=== PATIENT | female | born 2000 | race Caucasian/White ===

== ENCOUNTER 2024-01-10 19:20 | Inpatient (IN) | payer OTHER ==
[~2024-01-10] VITALS: Ht 162.6 cm; Wt 54.2 kg
[2024-01-10] MEDS ORDERED: Insulin Regular Human (NovoLIN R/HumuLIN R) IV ONE ×2 (20:00→22:30)
[2024-01-10] MEDS ORDERED: NS 1,000 ML IV ONE ×2 (20:00→23:30)
[2024-01-10 20:09] LABS: BASO # 0.1 K/mm3 (0.0-0.2); BASO % 1.6 % (0.0-2.0); EOS # 0.2 K/mm3 (0.0-0.7); EOS % 3.3 % (0.0-4.0); GRAN # 2.5 K/mm3 (1.4-6.5); GRAN % 49.4 % (42.2-75.2); HEMATOCRIT 39.5 % (37.0-47.0); HEMOGLOBIN 16.1 g/dl (12.5-16.0); LYMPH # 1.9 K/mm3 (1.2-3.4); LYMPH % 36.7 % (20.0-51.0); MEAN CELL VOLUME 90 fl (80.0-100.0); MEAN CORPUSCULAR HEMOGLOBIN 37 pg (27-31); MEAN CORPUSCULAR HGB CONC 41 g/dl (33.0-37.0); MEAN PLATELET VOLUME 11.1 fl (7.4-10.4); MONO # 0.4 K/mm3 (0.1-0.6); MONO % 8.4 % (1.7-9.3); PLATELET COUNT 178 K/mm3 (130-400); REDCELL DISTRIBUTION WIDTH-CV 13.1 % (11.5-14.5)
[2024-01-10 20:21] LABS: ALBUMIN 3.8 g/dL (3.5-5.0); BILIRUBIN,TOTAL 0.9 mg/dL (0.2-1.2); BLOOD UREA NITROGEN 5 mg/dL (7-19); CALCIUM 8.7 mg/dL (8.4-10.2); CHLORIDE 103 mEq/L (98-107); CREATININE, serum 0.88 mg/dL (0.57-1.11); GLUCOSE 392 mg/dL (70-99); POTASSIUM 5.1 mEq/L (3.5-4.5); SODIUM 126 mEq/L (136-145); TOTAL PROTEIN 11.7 g/dl (6.2-8.1)
[2024-01-10] MEDS ORDERED: Insulin Human Regular/NS 100 ML IV SCH (22:30)
[2024-01-10] MEDS ORDERED: D5W 1,000 ML IV SCH (22:30)
[2024-01-10] MEDS ORDERED: NS 1,000 ML IV SCH (22:30)
--- NOTE | 2024-01-10 22:37 | NUR ---
Received report from ED nurse, Yolanda.
[2024-01-10] MEDS ORDERED: Ondansetron 4 MG/2 ML VIAL IV PRN (22:45)
[2024-01-10] MEDS ORDERED: Acetaminophen 325 MG TAB PO PRN (22:45)
[2024-01-10 22:54] LABS: ACETONE,SERUM MODERATE
[2024-01-10 22:55] VITALS: BP 123/80; PULSE 87; TEMP 97.7
--- NOTE | 2024-01-10 22:55 | NUR ---
Patient arrives to ICU room 6 via wheelchair. Patient is alert and oriented. She is able to ambulate to ICU bed independently. Initial vitals within normal limits. She denies pain or discomfort. BG at 2245 was 297. Rudolph aware of patient's arrival to unit. Per Rudolph, to initiate insulin drip at 2 units/hr and to follow insulin drip protocol with next accucheck. Orders received to bolus 1L NS now with labs to be drawn in two hours.
[2024-01-10 23:03] LABS: MAGNESIUM 1.8 mg/dL (1.6-2.6); PHOSPHOROUS 0.9 mg/dL (2.3-4.7)
[2024-01-11] VITALS (28 sets, daily range): BP systolic 107–123; BP diastolic 63–101; PULSE 78–105; TEMP 97.6–98.1; O2SAT 96–100
--- NOTE | 2024-01-11 | NUR ---
Patient's belongings include street clothes, a backpack, a purse and wallet, a laptop, a cell phone, and set of keys. Patient denies wearing glasses, contacts, hearing aids, or dentures. Denies use of mobility aids. Denies taking home medications.
[2024-01-11 01:26] LABS: CALCIUM 7.8 mg/dL (8.4-10.2); CHLORIDE 111 mEq/L (98-107); CREATININE, serum 0.68 mg/dL (0.57-1.11); GLUCOSE 222 mg/dL (70-99); SODIUM 132 mEq/L (136-145)
[2024-01-11 01:27] LABS: BLOOD UREA NITROGEN < 5 mg/dL (7-19)
[2024-01-11] MEDS ORDERED: Sodium Bicarbonate/Water,Steri 1,150 ML IV SCH (01:30)
[2024-01-11 02:46] LABS: COLLECTION METHOD CLEAN CATCH
[2024-01-11 03:00] LABS: PH 5.5 (5.0-8.5); URINE APPEARANCE CLEAR (CLEAR/HAZY); URINE BLOOD NEGATIVE (NEGATIVE); URINE COLOR YELLOW (YELLOW); URINE GLUCOSE 3+ (NEGATIVE); URINE KETONE 4+ (NEGATIVE); URINE NITRATE NEGATIVE (NEGATIVE); URINE PROTEIN(semi-quant) 1+ (NEGATIVE); URINE UROBILINOGEN 0.2 E.U/dL (0.2-1.0)
[2024-01-11 03:06] LABS: CHLORIDE 109 mEq/L (98-107); CREATININE, serum 0.65 mg/dL (0.57-1.11); GLUCOSE 202 mg/dL (70-99); POTASSIUM 3.4 mEq/L (3.5-4.5); SODIUM 129 mEq/L (136-145)
[2024-01-11 03:15] LABS: SQUAMOUS EPITHELIAL 0-2 /hpf (0-10); URINE RBC 0-2 /hpf (0-2); URINE WBC 0-2 /hpf (0-2)
[2024-01-11 03:16] LABS: URINE BACTERIA RARE /hpf (NONE SEEN)
[2024-01-11 03:18] LABS: BASO # 0.1 K/mm3 (0.0-0.2); BASO % 0.9 % (0.0-2.0); EOS # 0.2 K/mm3 (0.0-0.7); EOS % 3.5 % (0.0-4.0); GRAN # 3.4 K/mm3 (1.4-6.5); GRAN % 52.3 % (42.2-75.2); LYMPH # 2.3 K/mm3 (1.2-3.4); LYMPH % 34.7 % (20.0-51.0); MEAN CELL VOLUME 88 fl (80.0-100.0); MEAN CORPUSCULAR HGB CONC 36 g/dl (33.0-37.0); MEAN PLATELET VOLUME 11.6 fl (7.4-10.4); MONO # 0.5 K/mm3 (0.1-0.6); PLATELET COUNT 148 K/mm3 (130-400); RED BLOOD COUNT 3.88 M/mm3 (4.10-5.30); REDCELL DISTRIBUTION WIDTH-CV 12.9 % (11.5-14.5)
[2024-01-11 03:22] LABS: BLOOD UREA NITROGEN < 5 mg/dL (7-19)
[2024-01-11 03:32] LABS: HEMATOCRIT 34.1 % (37.0-47.0); MEAN CORPUSCULAR HEMOGLOBIN 31 pg (27-31)
[2024-01-11 03:33] LABS: HEMOGLOBIN 12.2 g/dl (12.5-16.0)
[2024-01-11 05:37] LABS: CALCIUM 8.1 mg/dL (8.4-10.2); CHLORIDE 107 mEq/L (98-107); GLUCOSE 209 mg/dL (70-99); POTASSIUM 3.1 mEq/L (3.5-4.5); SODIUM 129 mEq/L (136-145)
[2024-01-11 05:41] LABS: BLOOD UREA NITROGEN < 5 mg/dL (7-19)
[2024-01-11] MEDS ORDERED: Potassium Bicarbonate/Citrate 20 MEQ Effervescent TAB PO SCH (06:00)
[2024-01-11] MEDS ORDERED: *Potassium Replacement Protocol MC SCH (06:00)
[2024-01-11 06:17] LABS: CHOLESTEROL 490 mg/dL (0-199); CHOLESTEROL RISK RATIO 28.8; HDL CHOLESTEROL 17 mg/dL (40-60)
--- NOTE | 2024-01-11 07:18 | NUR ---
Patient is alert and oriented, pleasant young lady with no known health concerns. Denies pain, sob, changes in diet, changes in activity. Complains of constant thirst and urination. Said she is quite surprised by her lab results and having to be admitted to the hospital.
[2024-01-11 08:44] LABS: ANION GAP 16 mmol/L (7-16); CALCIUM 8.7 mg/dL (8.4-10.2); CHLORIDE 108 mEq/L (98-107); CREATININE, serum 0.67 mg/dL (0.57-1.11); GLUCOSE 106 mg/dL (70-99); SODIUM 134 mEq/L (136-145)
[2024-01-11] MEDS ORDERED: NS 1,000 ML IV SCH (08:45)
[2024-01-11 08:56] LABS: BLOOD UREA NITROGEN < 5 mg/dL (7-19)
[2024-01-11 08:58] LABS: POTASSIUM 2.9 mEq/L (3.5-4.5)
[2024-01-11] MEDS ORDERED: Pantoprazole 40 MG in NS 10 ML IV SCH (09:00)
[2024-01-11] MEDS ORDERED: Magnesium Sulfate 4% 50 ML IV ONE (09:15)
--- NOTE | 2024-01-11 10:04 | NUR ---
Wharf Tender Helper met with patient to complete initial intake. 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 Patient's primary care provider is Dr. Maren Parsons and she is covered by [employer]. Patient's father, Genie (ph#[phone]) is her legal next of kin and she does not have DPOA-HC. Patient also has her brother, Abiodun (ph#[phone]) listed as a contact. Patient plans to return home in [place] when she is ready for discharge. SW spoke with RN about Diabetic Education. RN advised she will contact Hospitalist for order. Discharge Plan: Home
[2024-01-11 13:41] LABS: ANION GAP 17 mmol/L (7-16); CALCIUM 8.1 mg/dL (8.4-10.2); CHLORIDE 107 mEq/L (98-107); CREATININE, serum 0.65 mg/dL (0.57-1.11); GLUCOSE 185 mg/dL (70-99); MAGNESIUM 2.1 mg/dL (1.6-2.6); PHOSPHOROUS 1.2 mg/dL (2.3-4.7); SODIUM 135 mEq/L (136-145)
[2024-01-11 13:42] LABS: BLOOD UREA NITROGEN < 5 mg/dL (7-19)
[2024-01-11 13:44] LABS: POTASSIUM 2.8 mEq/L (3.5-4.5)
[2024-01-11] MEDS ORDERED: NS & 40 mEq KCl 1,000 ML IV SCH (16:45)
[2024-01-11 17:25] LABS: ANION GAP 15 mmol/L (7-16); CALCIUM 8.3 mg/dL (8.4-10.2); CHLORIDE 108 mEq/L (98-107); CREATININE, serum 0.69 mg/dL (0.57-1.11); GLUCOSE 312 mg/dL (70-99); PHOSPHOROUS 1.8 mg/dL (2.3-4.7); POTASSIUM 3.1 mEq/L (3.5-4.5); SODIUM 135 mEq/L (136-145)
[2024-01-11 17:26] LABS: BLOOD UREA NITROGEN < 5 mg/dL (7-19)
--- NOTE | 2024-01-11 19:00 | NUR ---
RECEIVED REPORT FROM ALFREDO HERNANDEZ. PATIENT SITTING UP IN BED, VISITING WITH AUNT. VITALS WITHIN NORMAL LIMITS. DENIES PAIN OR DISCOMFORT. CONTINUES TO RECEIVE INSULIN DRIP, SEE IV DRIP TITRATIONS.
--- NOTE | 2024-01-11 19:30 | NUR ---
PATIENT AMBULATES INDEPENDENTLY IN [place]. SHE WALKS THE EXPRESS LOOP AT LEAST TWO TIMES BEFORE RETURNING TO ROOM. TOLERATED ACTIVITY WELL.
[2024-01-11 22:00] LABS: CALCIUM 8.6 mg/dL (8.4-10.2); CREATININE, serum 0.67 mg/dL (0.57-1.11); MAGNESIUM 1.9 mg/dL (1.6-2.6); PHOSPHOROUS 1.5 mg/dL (2.3-4.7); POTASSIUM 3.2 mEq/L (3.5-4.5)
[2024-01-12] VITALS (12 sets, daily range): BP systolic 98–138; BP diastolic 42–96; PULSE 78–111; TEMP 97.6–98.5; O2SAT 79–100
[2024-01-12 01:34] LABS: CALCIUM 8.4 mg/dL (8.4-10.2); CREATININE, serum 0.52 mg/dL (0.57-1.11); POTASSIUM 3.4 mEq/L (3.5-4.5)
[2024-01-12 01:48] LABS: MAGNESIUM 1.9 mg/dL (1.6-2.6); PHOSPHOROUS 2.3 mg/dL (2.3-4.7)
[2024-01-12 04:32] LABS: BASO # 0.1 K/mm3 (0.0-0.2); BASO % 1.6 % (0.0-2.0); EOS # 0.2 K/mm3 (0.0-0.7); EOS % 4.6 % (0.0-4.0); GRAN % 45.6 % (42.2-75.2); HEMOGLOBIN 12.7 g/dl (12.5-16.0); LYMPH # 1.7 K/mm3 (1.2-3.4); LYMPH % 39.3 % (20.0-51.0); MEAN CELL VOLUME 85 fl (80.0-100.0); MEAN CORPUSCULAR HEMOGLOBIN 32 pg (27-31); MEAN CORPUSCULAR HGB CONC 37 g/dl (33.0-37.0); MEAN PLATELET VOLUME 10.2 fl (7.4-10.4); MONO # 0.4 K/mm3 (0.1-0.6); MONO % 8.4 % (1.7-9.3); PLATELET COUNT 148 K/mm3 (130-400); RED BLOOD COUNT 4.03 M/mm3 (4.10-5.30); REDCELL DISTRIBUTION WIDTH-CV 12.5 % (11.5-14.5)
[2024-01-12 04:34] LABS: HEMATOCRIT 34.4 % (37.0-47.0)
[2024-01-12 04:55] LABS: CALCIUM 8.2 mg/dL (8.4-10.2); CREATININE, serum 0.56 mg/dL (0.57-1.11); MAGNESIUM 1.8 mg/dL (1.6-2.6); PHOSPHOROUS 2.7 mg/dL (2.3-4.7); POTASSIUM 3.7 mEq/L (3.5-4.5)
[2024-01-12] MEDS ORDERED: NS 1,000 ML IV ONE (08:00)
[2024-01-12] MEDS ORDERED: Glucagon 1 MG VIAL IM PRN (09:00)
[2024-01-12] MEDS ORDERED: Insulin Glargine-ygfn (Lantus) SQ ONE (09:00)
[2024-01-12] MEDS ORDERED: Dextrose (Glucose) 15 GM (4 x 3.75 GM) Chewable TABLET PACK PO PRN (09:00)
[2024-01-12] MEDS ORDERED: Dextrose 50% Water 25 GM/50 ML SYRINGE IV PRN (09:00)
--- NOTE | 2024-01-12 10:12 | NUR ---
Pt resting comfortably in bed. VSS. IV infusing without difficulty. Pt sitting on side of bed eating breakfast. Morning medications administered without difficulty. Physician at bedside to discuss future diabetic management. Pt questions regarding insulin administration and maintenance addressed. Pt up to walk in hallway without difficulty. Pt does not have any questions, concerns, or complaints at this time.
[2024-01-12] MEDS ORDERED: Insulin Lispro (HumaLOG) SQ SCH (12:00)
--- NOTE | 2024-01-12 12:04 | NUR ---
01/12/[id number]-DIABETES EDUCATION CONSULTATION. 23 YO FEMALE ADMITTED FOR DKA AND NEW DIAGNOSIS OF DIABETES. BLOOD GLUCOSE AT ADMIT: 392 MG/DL, A1C 11.7%, AND C-PEPTIDE RESULT OF 0.54 (L, LIKELY INDICATES T1DM). PATIENT C/O THIRST, 30# WEIGHT LOSS IN LAST 1 YEAR, AND SOME BLURRED VISION NOTED AFTER EATING MEALS SOMETIMES. PATIENT STATES HER PCP IS CURRENTLY DR. MAGALY CARMONA AT [facility] IN [place], [place] WHICH IS WHERE PATIENT IS ORIGINALLY FROM. 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 SHE EXPRESSED INTEREST IN OUR MEETING THAT SHE WOULD LIKE TO TRANSITION PRIMARY CARE TO SOMEONE IN [place], BUT HAS HAD TROUBLES FINDING A PCP THAT WILL ACCEPT HER INSURANCE- [employer] PL[employer]. REQUEST FOR SOCIAL WORK TO DISCUSS FURTHER WITH PATIENT AND PROVIDE POTENTIAL PCP NAMES THAT SHE MAY BE ABLE TO CONNECT WITH. REVIEWED FINGERSTICK BG MONITORING WITH PATIENT AND NORMAL RANGES FOR BG (70-180 MG/DL). RECOMMENDED THIS PATIENT CHECK BG A MINIMUM OF 5X/DAY: FASTING, TID BEFORE MEALS, AND HS, AND ADDITIONALLY IF SHE IS FEELING ANY SYMPTOMS OF HYPO OR HYPERGLYCEMIA. REQUEST DISCHARGE ORDERS AND RX. FOR ENOUGH LANCETS AND TEST STRIPS FOR HER TO CHECK 6X/DAY SO SHE HAS ADEQUATE SUPPLIES. PATIENT HAS INTEREST IN GETTING A CONTINUOUS GLUCOSE MONITOR (CGM) REVIEWED THE MAIN OPTIONS WITH HER (DEXCOM, FREESTYLE [place]UT[place]O) AND EXPLAINED HER PCP WILL HAVE TO PRESCRIBE THIS FOR HER. REVIEWED THE DIFFERENT TYPES OF INSULIN (LANTUS VS. NOVOLOG) AND THE IMPORTANCE OF TIMING NOVOLOG RIGHT BEFORE EATING TO DECREASE RISK OF HYPOGLYCEMIA. PATIENT VERBALIZED UNDERSTANDING. RN AGREED TO TEACH PATIENT HOW TO PROVIDE INSULIN INJECTIONS TODAY. EDUCATION ALSO PROVIDED ON BASIC CARBOHYDRATE CONTROLLED DIET AND HEALTHY SNACK OPTIONS. I ALSO REVIEWED THE DANGERS OF ALCOHOL CONSUMPTION WHILE TAKING INSULIN AND POTENTIAL RISK FOR HYPOGLYCEMIA WITH THIS PATIENT SHE STATES SHE DOES DRINK SOCIALLY. WILL ATTEMPT TO FOLLOW UP WITH PATIENT'S PCP AND REQUEST AN OUPATIENT REFERRAL. I THINK THIS PATIENT WILL BE ABLE TO UNDERSTAND CARBOHYDRATE COUNTING AFTER SOME ADDITIONAL EDUCATION AND HOPEFULLY SHE CAN TRANSITION TO A MEAL REGIMEN THAT IS BASED ON MEALTIME CARBOHYDRATE INTAKE SUCH : 1 UNIT NOVOLOG PER 15GM CARBOHYDRATE. I DO NOT FEEL THIS PATIENT IS READY YET FOR THIS TYPE OF REGIMEN SHE NEEDS MORE EDUCATION, BUT I WILL PLAN TO FOCUS ON THIS IN AN OUTPATIENT SETTING. LASTLY, RECOMMEND PATIENT'S PCP SEND AN ENDOCRINOLOGY REFERRAL FOR THIS PATIENT. SHE IS OPEN TO SEEING ENDOCRINOLOGY IN [place], [place], OR [facility] AN OPEN[facility]. CHRIS COBB,,RD,CSSD,LD
--- NOTE | 2024-01-12 14:28 | NUR ---
PATIENT UP TO ROOM 351 FROM ICU. PT ABLE TO WALK INDEPENDENTLY. REPORT RECIEVED FROM ALFREDO BURKETT.
--- NOTE | 2024-01-12 14:45 | NUR ---
Pt received orders to transfer to medical floor. Report given to ALFREDO Ying at 1410. Pt belongings with pt at time of transfer. Pt ambulated to medical floor without difficulty. ALFREDO Ying and medical office supervisor met in room at time of arrival. Arrived to medical unit room at 1430. Care transferred to ALFREDO Ying and ALFREDO Heller at this time.
--- NOTE | 2024-01-12 14:48 | NUR ---
Social Services Coordinator followed up with patient to provide list of PCP providers in the area. Patient reported she met with diabetes education and feels like things are "coming together". Patient feels good about returning home when ready for discharge.
--- NOTE | 2024-01-12 19:18 | NUR ---
PATIENT RESTING SITTING UP IN BED TALKING TO FRIEND WITH NO ACUTE DISTRESS NOTED. PATIENT ON ROOM AIR. NS WITH 40 KCL INFUSING INTO RIGHT HAND WITH NO COMPLICATIONS NOTED. INT TO RIGHT AC INTACT WITH NO COMPLICATIONS NOTED. BEDSIDE SHIFT REPORT COMPLETED WITH AMI. PATIENT DENIES ANY NEEDS AT THIS TIME. BED IN LOW POSITION WITH WHEELS LOCKED WITH RAILS UP X2 AND CALL LIGHT WITHIN REACH.
--- NOTE | 2024-01-12 19:21 | NUR ---
1600-CLARIFIED WITH THAT SHE WANTS ACCUCHECKS AND SLIDING SCALE Q6HR. SHE STATED SHE WOULD LIKE ATLEAST OVERNIGHT TO CONTINUE Q6HR.
[2024-01-12 21:51] LABS: ANION GAP 13 mmol/L (7-16); CALCIUM 9.1 mg/dL (8.4-10.2); CHLORIDE 105 mEq/L (98-107); CREATININE, serum 0.64 mg/dL (0.57-1.11); GLUCOSE 247 mg/dL (70-99); MAGNESIUM 1.8 mg/dL (1.6-2.6); PHOSPHOROUS 2.3 mg/dL (2.3-4.7); POTASSIUM 3.6 mEq/L (3.5-4.5); SODIUM 137 mEq/L (136-145)
[2024-01-12 21:53] LABS: BLOOD UREA NITROGEN < 5 mg/dL (7-19)
--- NOTE | 2024-01-12 22:15 | NUR ---
PATIENT RESTING IN BED WITH TV OFF WITH NO FAMILY PRESET WITH NO ACUTE DISTRESS NOTED. PATIENT ON ROOM AIR. NS WITH 40 KCL INFUSING INTO RIGHT HAND WITH NO COMPLICATIONS NOTED. INT TO RIGHT AC INTACT WITH NO COMPLICATIONS NOTED. ASSESSMENT AND MEDICATION ADMINISTRATION COMPLETED AT THIS TIME. PATIENT TOLERATED WELL. PITCHER OF ICE AND WATER GIVEN. ALL NEEDS MET. BED IN LOW POSITION WITH WHEELS LOCKED WITH RAILS UP X2 AND CALL LIGTH WITHIN REACH.
[2024-01-13 00:02] VITALS: BP 102/69; PULSE 87; TEMP 97.8
[2024-01-13 00:18] VITALS: BP_SYST 102
[2024-01-13 04:12] VITALS: BP 91/60; PULSE 79; TEMP 97.8
[2024-01-13 04:15] VITALS: BP_SYST 91
[2024-01-13 06:22] LABS: BASO # 0.1 K/mm3 (0.0-0.2); BASO % 1.4 % (0.0-2.0); EOS # 0.2 K/mm3 (0.0-0.7); EOS % 4.1 % (0.0-4.0); GRAN # 1.5 K/mm3 (1.4-6.5); GRAN % 39.3 % (42.2-75.2); HEMOGLOBIN 12.1 g/dl (12.5-16.0); LYMPH # 1.6 K/mm3 (1.2-3.4); LYMPH % 44.3 % (20.0-51.0); MEAN CORPUSCULAR HEMOGLOBIN 31 pg (27-31); MEAN CORPUSCULAR HGB CONC 35 g/dl (33.0-37.0); MEAN PLATELET VOLUME 11.5 fl (7.4-10.4); MONO # 0.4 K/mm3 (0.1-0.6); MONO % 10.6 % (1.7-9.3); RED BLOOD COUNT 3.91 M/mm3 (4.10-5.30); REDCELL DISTRIBUTION WIDTH-CV 13.2 % (11.5-14.5)
[2024-01-13 06:37] LABS: ANION GAP 10 mmol/L (7-16); BLOOD UREA NITROGEN < 5 mg/dL (7-19); CALCIUM 8.5 mg/dL (8.4-10.2); CHLORIDE 108 mEq/L (98-107); CREATININE, serum 0.55 mg/dL (0.57-1.11); GLUCOSE 184 mg/dL (70-99); MAGNESIUM 1.8 mg/dL (1.6-2.6); PHOSPHOROUS 4.3 mg/dL (2.3-4.7); POTASSIUM 3.6 mEq/L (3.5-4.5); SODIUM 139 mEq/L (136-145)
[2024-01-13 07:44] LABS: MEAN CELL VOLUME 90 fl (80.0-100.0)
[2024-01-13 07:45] LABS: PLATELET COUNT 125 K/mm3 (130-400)
[2024-01-13 07:51] VITALS: BP 129/75; PULSE 88; TEMP 98.1
[2024-01-13] MEDS ORDERED: Potassium Bicarbonate/Citrate 20 MEQ Effervescent TAB PO SCH (08:00)
[2024-01-13] MEDS ORDERED: Insulin Lispro (HumaLOG) SQ SCH (08:00)
[2024-01-13] MEDS ORDERED: Insulin Glargine-ygfn (Lantus) SQ SCH (09:00)
[2024-01-13] MEDS ORDERED: BD ALCOHOL1 SWA MC (09:04)
[2024-01-13] MEDS ORDERED: GLUCAGON EMERGEN1 M1 SQ (09:04)
[2024-01-13] MEDS ORDERED: GLUCOSE TEST ST1 DEV MC (09:04)
[2024-01-13] MEDS ORDERED: GLUTOSE 1515 GM PO (09:04)
[2024-01-13] MEDS ORDERED: CONTROL SOLUTI1 EAC1 MC (09:04)
[2024-01-13] MEDS ORDERED: LANCETS MC (09:04)
[2024-01-13] MEDS ORDERED: FREESTYLE PREC1 EAC5 MC (09:04)
[2024-01-13] MEDS ORDERED: INSULIN PEN NE1 EAC1 MC (09:04)
[2024-01-13] MEDS ORDERED: BASAGLAR K100 UNIT/1 SQ (09:05)
--- NOTE | 2024-01-13 10:19 | NUR ---
Social work student followed up about patient's PCP. Patient stated she will go back to her PCP in [place] at [facility], Dr. Echavarria. Patient has been calling to schedule appointment. Discharge plan: home
[2024-01-13 11:30] VITALS: BP 112/75; PULSE 85; TEMP 98.4
--- NOTE | 2024-01-13 13:53 | NUR ---
PATIENT ALERT AND ORIENTED X4. VSS. PATIENT HERE FOR DKA. PATIENT DENIES ANY PAIN. IV'S TO RIGHT AC AND RIGHT HAND INT AND FLUSH WELL. PATIENT DENIES ANY FURTHER NEEDS. AM MEDS ADMINISTERED. CALL LIGHT IN REACH.
--- NOTE | 2024-01-13 13:54 | NUR ---
DISCHARGE INSTRUCTIONS PROVIDED. PATIENT EDUCATION GIVEN. IV DC'D FOLLOW UP APPOINTMENT DISCUSSED. PATIENT ABLE TO SCHEDULE OWN APPOINTMENT JAVA ENTERPRISE ARCHITECT UNABLE TO. MEDICATIONS REVIEWED. PATIENT ABLE TO PERFORM TEACHBACK METHOD FOR INSULIN ADMINISTRATION AND BLOOD SUGAR CHECKS. PATIENT DENIES ANY QUESTIONS OR CONCERNS. PATIENT ESCORTED OUT WITH BELONGINGS.
== END 2024-01-13 13:55 | disposition home or self-care (01) | DRG 638 ==
LOC: COL.ER 19:20 → ICU 22:20 → MEDICAL 01-12 14:15
PROVIDERS: Internal Medicine; Personal Emergency Response Attendant; Physician Assistant; ADMIT Internal Medicine
DX: E10.10 Type 1 diabetes mellitus with ketoacidosis without coma (principal); Z68.1 Body mass index [BMI] 19.9 or less, adult; F32.A Depression, unspecified; E78.1 Pure hyperglyceridemia; E87.5 Hyperkalemia; E86.0 Dehydration; B37.9 Candidiasis, unspecified; R63.4 Abnormal weight loss; Z23 Encounter for immunization
CPT/HCPCS: J1650; J1815; J2470; J3475; J3480; J7030; J7070

== ENCOUNTER → 2024-02-07 | Outpatient (CLI) | payer OTHER ==
[~2024-02-07] MED LIST: BASAGLAR K100 UNIT/1 SQ; BD ALCOHOL1 SWA MC; CONTROL SOLUTI1 EAC1 MC; FREESTYLE PREC1 EAC5 MC; GLUCAGON EMERGEN1 M1 SQ; GLUCOSE TEST ST1 DEV MC; GLUTOSE 1515 GM PO; INSULIN PEN NE1 EAC1 MC; LANCETS MC
== END ==
LOC: DIA.ED 01-26 10:04
DX: E10.9 Type 1 diabetes mellitus without complications (principal)
CPT/HCPCS: G0108